=== PATIENT | male | born 1955 | race Caucasian/White ===

== ENCOUNTER → 2018-11-03 | Outpatient (CLI) | payer OTHER ==
--- NOTE | 2018-11-04 10:40 | RAD ---
Single frontal view pelvis Indication: M25.562, M25.561, 25.551, M25.552 Comparison: None. Impression: No acute fracture. Mild to moderate bilateral hip osteoarthritic with joint space narrowing and tiny osteophytes. Lower lumbar disc disease. Electronically signed by: Rakesh Cornelius MD 11/04/2018 10:37 AM CDT
--- NOTE | 2018-11-04 10:43 | RAD ---
4 radiographs right knee. 4 radiographs left knee. Indication: M25.562, M25.561, 25.551, M25.552 Comparison: None. Impression: Severe bilateral medial knee compartment osteoarthritis, left greater than right. There is severe joint space loss and patchy areas of cortical remodeling and subchondral sclerosis. Moderate narrowing bilateral lateral and patellofemoral compartments. Moderate to large tricompartmental osteophytes bilaterally. Small right knee effusion. Moderate left knee effusion with several ossified loose bodies in the left suprapatellar recess measuring up to 20 mm. No acute fracture of either knee. Electronically signed by: Rakesh Cornelius MD 11/04/2018 10:40 AM CDT
== END ==
LOC: RAD 09:34
PROVIDERS: ATTEND Orthopaedic Surgery
DX: M16.0 Bilateral primary osteoarthritis of hip (principal); M17.0 Bilateral primary osteoarthritis of knee; M51.36 Other intervertebral disc degeneration, lumbar region

== ENCOUNTER → 2018-11-29 | Outpatient (CLI) | payer OTHER | LOC: RESP 10:38 | PROVIDERS: ATTEND Orthopaedic Surgery | DX: Z01.818 Encounter for other preprocedural examination (principal) ==

== ENCOUNTER → 2018-12-28 | Outpatient (CLI) | payer OTHER ==
--- NOTE | 2018-12-28 16:29 | RAD ---
EXAM DESCRIPTION: Chest,2 Views CLINICAL HISTORY: PRE OP COMPARISON: None TECHNIQUE: PA/lateral FINDINGS: There is no acute appearing cardiac or pulmonary abnormality. Heart size is normal with normal pulmonary vascularity. No pleural effusion or pneumothorax. Lungs are clear with no consolidating infiltrate. Lateral view shows intact sternum and T-spine. IMPRESSION: No acute process is identified in the chest. Electronically signed by: Shahram Rhodes MD 12/28/2018 4:27 PM CDT
== END ==
LOC: LAB.O 10:10
PROVIDERS: ATTEND Orthopaedic Surgery
DX: Z01.818 Encounter for other preprocedural examination (principal)

== ENCOUNTER 2019-02-02 05:47 | Inpatient (IN) | payer OTHER ==
--- NOTE | 2019-01-22 12:56 | HP ---
CHIEF COMPLAINT: Left knee pain. HISTORY OF PRESENT ILLNESS: Mr. Kumar is a 63-year-old male with a history of severe knee pain. He has had bilateral knee pain that has caused him to utilize an assistive device. Because of his ongoing pain and failure of conservative measures, he has requested operative intervention. He says the pain is directly in the knee and has an intensity level at this time at 8 to 9 and sometimes 10 if he is on it quite a bit. PAST SURGICAL HISTORY: 1. Open meniscectomy. MEDICATIONS: 1. Lisinopril. 2. Triamterene. 3. Aspirin. ALLERGIES: NO KNOWN DRUG ALLERGIES. CODE STATUS: Full code. IMMUNIZATIONS: Up to date. SOCIAL HISTORY: The patient does not drink, smoke or use any illicit drugs. FAMILY HISTORY: None pertinent to today's complaint. REVIEW OF SYSTEMS: Negative except as indicated in the History of Present Illness. PHYSICAL EXAMINATION: VITAL SIGNS: Blood pressure 106/57. Pulse 87. Height 6'4". Weight 338 pounds. GENERAL: He is an obese male in no acute distress. MENTAL STATUS: The patient is awake, alert, and is able to give a good history and participate in the physical. The patient is oriented to person, place and time. SKIN: Normal tone and turgor. HEENT: Normocephalic, atraumatic. Pupils equal, round and reactive. Mucosal membranes are moist. NECK: Normal range of motion. No thyromegaly, no lymphadenopathy. CHEST: Normal respiratory excursion. CARDIAC: Regular rate and rhythm. No murmurs, rubs or gallops. MUSCULOSKELETAL: The upper extremities show full active range of motion without significant discomfort. He has no malalignment. Sensation is intact. Strength is 5/5. Both are warm and well perfused. The right lower extremity shows full range of motion of the knee. He has full extension in the knee and flexion to about 120 degrees. He has varus deformity. There is no varus/valgus or anterior/posterior laxity. There is no effusion present today. He has full range of motion in the ankle and digits. The left lower extremity shows full range of motion of the hip. There is varus deformity to the knee with crepitus throughout his range of motion from full extension and 120 degrees of flexion. The entire extremity is warm and well perfused. There is no significant varus/valgus or anterior/posterior laxity. He is very tender in both knees to palpation diffusely. The left knee has a moderate sized effusion today. The ankle and digits show full active range of motion. ASSESSMENT: 1. Severe arthritis. PLAN: The plan at this point is for total knee arthroplasty. We have discussed the risks, benefits, and alternatives to that and the patient has given informed consent. [facility][id number] [facility]
[2019-02-02] MEDS ORDERED: LACTATED RINGERS 1,000 ML ONE (05:57)
[2019-02-02] MEDS ORDERED: ceFAZolin SODIUM 1 GM VIAL ONE ×6 (05:57→19:51)
[2019-02-02] MEDS ORDERED: VANCOMYCIN HCL INJ 1,000 MG VIAL IVPB ONE ×4 (05:57→19:51)
[2019-02-02] MEDS ORDERED: TRANEXAMIC ACID 1,000 MG/10 ML VIAL ONE ×3 (05:57→09:09)
[2019-02-02] MEDS ORDERED: SODIUM CHL 0.9% 100ML MINI-BAG 100 ML IVPB ONE (05:57)
[2019-02-02] MEDS ORDERED: SODIUM CHLORIDE 0.9% 250ML 250 ML ONE ×2 (05:58→19:50)
[2019-02-02] MEDS ORDERED: SODIUM CHLORIDE 0.9% 100ML 100 ML IVPB ONE ×3 (05:58→19:51)
[2019-02-02] MEDS ORDERED: BUPIVACAINE 0.5% 30 ML VIAL INJ ONE (06:48)
[2019-02-02] MEDS ORDERED: BUPIVACAINE LIPOSOME 13.3 MG/ML VIAL INJ ONE (06:48)
[2019-02-02] MEDS ORDERED: SODIUM CHLORIDE 0.9% 50 ML VIAL ONE (07:00)
[2019-02-02] MEDS ORDERED: PROPOFOL 200 MG/20 ML VIAL IV ONE (07:00)
[2019-02-02] MEDS ORDERED: ePHEDrine SULF 50 MG/ML ONE (07:00)
[2019-02-02] MEDS ORDERED: raNITIdine HCL INJ 25 MG/ML VIAL ONE (07:00)
[2019-02-02] MEDS ORDERED: DEXAMETHASONE INJ 10 MG/ML VIAL ONE (07:00)
[2019-02-02] MEDS ORDERED: LACTATED RINGERS 1,000 ML BAG IV ONE (10:20)
[2019-02-02] MEDS ORDERED: TRANEXAMIC ACID 1,000 MG/10 ML VIAL IV ONE (10:21)
[2019-02-02] MEDS ORDERED: MORPHINE SULFATE *EPIDURAL* 0.5 MG/ML VIAL ONE (10:55)
[2019-02-02] MEDS ORDERED: MIDAZOLAM INJ 5 MG/5 ML VIAL ONE (10:55)
[2019-02-02] MEDS ORDERED: KETAMINE HCL 100 MG/ML VIAL ONE (10:55)
[2019-02-02] MEDS ORDERED: fentaNYL CITRATE INJ 50 MCG/ML AMP ONE (10:55)
[2019-02-02] MEDS ORDERED: ALUMINUM & MAGNESIUM HYDROXIDE 30 ML UD PO PRN (13:53)
[2019-02-02] MEDS ORDERED: ACETAMINOPHEN 325 MG TAB PO PRN (13:53)
[2019-02-02] MEDS ORDERED: ONDANSETRON INJ 4 MG/2 ML VIAL IV PRN (13:53)
[2019-02-02] MEDS ORDERED: MORPHINE SULFATE INJ 10 MG/ML VIAL IV PRN (13:53)
[2019-02-02] MEDS ORDERED: MAGNESIUM HYDROXIDE 30 ML UD PO PRN (13:53)
[2019-02-02] MEDS ORDERED: SODIUM CHLORIDE 0.9% (FLUSH) 10 ML SYG IV PRN (13:53)
[2019-02-02] MEDS ORDERED: TRANEXAMIC ACID INJ 1,000 MG in SODIUM CHLORIDE 0.9% 100ML 100 ML IVPB ONE (13:53)
[2019-02-02] MEDS ORDERED: ACETAMINOPHEN 500 MG TAB PO PRN (13:53)
[2019-02-02] MEDS ORDERED: PROMETHAZINE HCL INJ 12.5 MG in SODIUM CHLORIDE 0.9% 50ML 50 ML IVPB PRN (13:53)
[2019-02-02] MEDS ORDERED: HYDROcodone 5MG/APAP 325MG 1 EA TAB PO PRN (13:53)
[2019-02-02] MEDS ORDERED: BISACODYL SUPPOSITORY 10 MG PR PRN (13:53)
[2019-02-02] MEDS ORDERED: BENZOCAINE-MENTH LOZ (CEPACOL) 1 EA LOZ MT PRN (13:53)
[2019-02-02] MEDS ORDERED: traMADol HCL 50 MG TAB PO PRN (13:53)
[2019-02-02] MEDS ORDERED: PROMETHAZINE HCL INJ 25 MG in SODIUM CHLORIDE 0.9% 50ML 50 ML IVPB PRN (13:53)
[2019-02-02] MEDS ORDERED: TEMAZEPAM 15 MG CAP PO PRN (13:53)
[2019-02-02] MEDS ORDERED: NALOXONE HCL INJ 0.4 MG/ML VIAL IV PRN (13:53)
[2019-02-02] MEDS ORDERED: ZOLPIDEM TARTRATE 5 MG TAB PO PRN (13:53)
[2019-02-02] MEDS ORDERED: MORPHINE SULFATE INJ 10 MG/ML VIAL IM PRN (13:53)
[2019-02-02] MEDS ORDERED: MORPHINE PCA 1 MG/ML 100 ML BAG IVPB SCH (14:00)
[2019-02-02] MEDS ORDERED: IV SET AND CAP CHANGE INJ INJ SCH (14:00)
--- NOTE | 2019-02-02 14:18 | RAD ---
EXAM DESCRIPTION: Fluoroscopy Up to 1Hr CLINICAL HISTORY: 63 years Male, LEFT TKA COMPARISON: Left knee radiographs 11/03/2018. IMPRESSION: Single fluoroscopic images saved for the benefit of the surgeon demonstrates total left knee arthroplasty. Please see procedure report for full details. Fluoroscopy time: 5 seconds Fluoroscopic images: 1 Total dose: 2.5 mGy Electronically signed by: Cornelius Miranda MD 02/02/2019 2:15 PM CDT
[2019-02-02] MEDS ORDERED: ceFAZolin SODIUM 2 GM in SODIUM CHLORIDE 0.9% 100ML 100 ML IVPB SCH (16:00)
[2019-02-02] MEDS: DEX 5% W/NACL 0.45% 1000ML 1,000 ML IVS PRN ×2 (16:09→16:53)
--- NOTE | 2019-02-02 16:20 | RAD ---
XR KNEE 1-2 VIEWS HISTORY: 63 years Male TKA COMPARISON: November 03, 2018. TECHNIQUE: Frontal and lateral views of the left knee. IMPRESSION: Status post left knee arthroplasty. Imaged hardware appears intact and in normal alignment. No periprosthetic fracture detected. Postsurgical changes noted in the overlying soft tissues. Electronically signed by: Alessandro Schofield MD 02/02/2019 4:18 PM CDT
[2019-02-02] MEDS: CELECOXIB 100 MG CAP PO SCH (17:28)
--- NOTE | 2019-02-02 17:52 | OP ---
DATE OF PROCEDURE: 02/02/19 PREOPERATIVE DIAGNOSIS: 1. Osteoarthritis of the left knee. POSTOPERATIVE DIAGNOSIS: 1. Osteoarthritis of the left knee. PROCEDURE: 1. Total knee arthroplasty. SURGEON: Eitan Villa M.D. PLATFORM BEATER: Arya Morales CST, SA-C ANESTHESIA: General anesthesia. COMPLICATIONS: None. FINDINGS: Severe arthritis of the knee with multiple loose bodies. INDICATION FOR PROCEDURE: Mr. Kumar has a history of severe worsening knee pain. Mr. Kumar has been essentially debilitated by this and has failed conservative measures. Because of his failure of conservative measures he has requested operative intervention. After discussing the risks, benefits, and alternatives to that he has given informed consent for that. PROCEDURE: The patient was brought to the Operating Room and placed in supine position. General anesthesia was induced and the patient's leg was sterilely prepped and draped. Following prepping and draping, the distal femur was exposed and using an intramedullary guide, the distal femoral cut was made. The appropriate sized cutting block was measured, pinned into place, and the anterior, posterior, and chamfer cuts were made. The ACL was transected and the tibia was subluxed. Both the medial and lateral menisci were removed. An intramedullary guide was used to make the proximal tibial cut. The appropriate sized base plate was placed and a trial polyethylene was placed. The trial femur was placed, the knee was reduced, and the knee was taken through a range of motion. The knee was stable in anterior, posterior, varus and valgus stress. The patella tracked anatomically without evidence of subluxation or dislocation. After trialing, the trial components were removed and the bony surfaces were thoroughly irrigated with saline. Following irrigation, the surfaces were dried and the final components were cemented into place. The excess cement was removed and the remaining cement was allowed to cure. The knee was again taken through a range of motion to confirm stability. The wound was then irrigated with saline and closure was performed using PDS to approximate the arthrotomy followed by closure of the subcutaneous tissues with a combination of running and interrupted Monocryl sutures. Sterile dressing was placed. The patient was awoken from anesthesia and taken to Recovery. COMPONENTS: Sherin Triathlon knee, size 6 femur, size 6 tibia, 9 mm insert. POSTOPERATIVE INSTRUCTIONS: He will be weightbearing as tolerated on postoperative day 1. #[id number] [facility]
[2019-02-02] MEDS ORDERED: VANCOMYCIN HCL INJ 1,000 MG in SODIUM CHLORIDE 0.9% 250ML 250 ML IVPB SCH (18:00)
[2019-02-02] MEDS ORDERED: ENOXAPARIN SODIUM 30 MG/0.3 ML SYG SUBCU ONE (19:50)
[2019-02-02] MEDS: ceFAZolin SODIUM 2 GM in SODIUM CHLORIDE 0.9% 100ML 100 ML IVPB SCH (20:42)
[2019-02-02] MEDS: DOCUSATE CALCIUM 240 MG CAP PO SCH (20:42)
--- NOTE | 2019-02-02 21:20 | CONS ---
DATE OF CONSULTATION: 02/02/19 SUPERVISING PHYSICIAN: Aiden Disla M.D. CHIEF COMPLAINT: Left knee pain. HISTORY OF PRESENT ILLNESS: This is a 63 year-old male patient who has a history of severe left knee pain. He has had to use assistive devices. He has actually had an operative intervention in the past on this knee from meniscectomy. He requested Dr. Eitan Villa, orthopedic surgeon, for operative intervention for a left total knee. He was admitted today for operative intervention. He had no complications intraoperatively. I am seeing the patient postoperatively on the Medical/Surgical floor. PAST MEDICAL HISTORY: 1. Hypertension. 2. Diverticulosis. 3. Hepatitis C. He did treatment to cure several years ago. PAST SURGICAL HISTORY: 1. Open meniscectomy. OUTPATIENT MEDICATIONS: 1. Lisinopril. 2. Triamterene. 3. Aspirin. ALLERGIES: NO KNOWN DRUG ALLERGIES. SOCIAL HISTORY: He lives in [place]. He is . He smoked cigarettes for 33 years but he quit approximately 15 years ago. He quit drinking alcoholic beverages about 16 years ago in the past. He has had a history of smoking marijuana but he quit that many years ago. REVIEW OF SYSTEMS: Negative except as per History of Present Illness. PHYSICAL EXAMINATION: VITAL SIGNS: Temperature 98.1, heart rate 79, blood pressure 145/88, respiratory rate 16, O2 sat 97% on 2 liters nasal cannula. GENERAL: This is an obese male patient sitting up in his hospital bed. He is in no acute distress. HEENT: Normocephalic and atraumatic. Pupils are equal and reactive. Oropharynx is clear. NECK: Supple without mass. RESPIRATORY: Essentially clear to auscultation bilaterally. HEART: Regular rate and rhythm. GASTROINTESTINAL: Abdomen is soft, nondistended, non-tender. Bowel sounds are positive. EXTREMITIES: He has an Iceman in place to his left knee. It is in the CPM machine. Bilateral pedal pulses are palpable at +2. NEUROLOGIC: He is awake, alert and oriented times three. LABORATORY: WBCs are 6.7, hemoglobin 13.1, hematocrit 39.2. Electrolytes are basically within normal limits. BUN 33, creatinine 1.64, glucose 109. Urinalysis is unremarkable. Urine drug screen was negative. All other labs and films have been reviewed via the EMR. IMPRESSION: 1. Severe osteoarthritis status post left total knee arthroplasty performed by Dr. Eitan Villa, orthopedic surgeon. Postoperative day #0. 2. Hypertension. 3. History of hepatitis that was treated to cure. 4. History of diverticulosis. 5. Renal insufficiency. PLAN: We will continue present supportive care. Orthopedic issues will be per Dr. Eitan Villa, orthopedic surgeon. He will begin his physical therapy for strengthening and conditioning tomorrow. Restart his home medications. He may need additional lab in the next day or 2 to check his kidney function. I have also ordered a Keto type diet as he has been on that for several months and would like to continue with that. I have also consulted Business Technology Professor as he needs some kind of documentation about the surgery to be taken to the [facility] Will continue to monitor closely and follow as needed. #[id number] [facility]
[2019-02-02] MEDS: VANCOMYCIN HCL INJ 1,000 MG in SODIUM CHLORIDE 0.9% 250ML 250 ML IVPB SCH (21:57)
[2019-02-02] MEDS: ENOXAPARIN SODIUM 30 MG/0.3 ML SYG SUBCU SCH (23:07)
[2019-02-03] MEDS: ceFAZolin SODIUM 2 GM in SODIUM CHLORIDE 0.9% 100ML 100 ML IVPB SCH ×3 (04:30→20:46)
[2019-02-03] MEDS: CELECOXIB 100 MG CAP PO SCH ×2 (07:51→17:38)
[2019-02-03] MEDS ORDERED: SODIUM CHLORIDE 0.9% 250ML 250 ML ONE ×2 (08:22→20:03)
[2019-02-03] MEDS ORDERED: VANCOMYCIN HCL INJ 1,000 MG VIAL IVPB ONE ×2 (08:23→20:04)
[2019-02-03] MEDS: HCTZ 25 MG/TRIAMTERENE 37.5 MG 1 EA CAP PO SCH (09:29)
[2019-02-03] MEDS: LISINOPRIL 10 MG TAB PO SCH (09:29)
[2019-02-03] MEDS: POLYETHYLENE GLYCOL 3350 17 GM PCKT PO SCH (09:29)
[2019-02-03] MEDS: MAGNESIUM OXIDE 400 MG TAB PO SCH (09:29)
[2019-02-03] MEDS: VANCOMYCIN HCL INJ 1,000 MG in SODIUM CHLORIDE 0.9% 250ML 250 ML IVPB SCH ×2 (10:17→22:02)
[2019-02-03] MEDS: ENOXAPARIN SODIUM 30 MG/0.3 ML SYG SUBCU SCH ×2 (10:20→22:31)
[2019-02-03] MEDS ORDERED: ceFAZolin SODIUM 1 GM VIAL ONE ×3 (12:39→20:05)
[2019-02-03] MEDS ORDERED: SODIUM CHLORIDE 0.9% 100ML 100 ML IVPB ONE ×3 (12:39→20:05)
--- NOTE | 2019-02-03 15:44 | PN ---
DATE: 02/03/19 SUBJECTIVE: Mr. Kumar is subjectively doing really well and he says his pain, even postoperatively, is better than what it was preoperatively. OBJECTIVE: He is afebrile. Vital signs are stable. Dressing is clean, dry and intact. ASSESSMENT: 1. Status post total knee arthroplasty PLAN: The plan at this point is for him to continue on with weightbearing as tolerated. Will get him discharged when he meets discharge criteria. #[id number] [facility]
[2019-02-03] MEDS: CYCLOBENZAPRINE HCL 10 MG TAB PO PRN (19:41)
[2019-02-03] MEDS: DEX 5% W/NACL 0.45% 1000ML 1,000 ML IVS PRN (19:41)
[2019-02-03] MEDS: HYDROcodone 10MG/APAP 325MG 1 EA TAB PO PRN (19:41)
[2019-02-03] MEDS: DOCUSATE CALCIUM 240 MG CAP PO SCH (20:46)
[2019-02-03] MEDS ORDERED: ceFAZolin SODIUM 2 GRAMS PREMI 2 GM in PREMIX BAG 1 BAG IVPB SCH (21:00)
--- NOTE | 2019-02-03 21:44 | PN ---
DATE: 02/03/19 SUPERVISING PHYSICIAN: Aiden Disla M.D. SUBJECTIVE: The patient is sitting up in his chair eating. He has no complaints. He actually feels like his physical therapy is going very well, and because of his previous knee pain he feels like it is very minimal pain, mostly soreness. Denies shortness of breath, nausea, vomiting, diarrhea, constipation or chest pain. OBJECTIVE: VITAL SIGNS: Temperature 98, heart rate 72, blood pressure 121/73, respiratory rate 16, O2 sat 98% on room air. RESPIRATORY: Essentially clear to auscultation bilaterally. CARDIAC: Regular rate and rhythm. GASTROINTESTINAL: Abdomen is soft, nondistended, non-tender. Bowel sounds are positive. EXTREMITIES: Bilateral pedal pulses are palpable at +2. His left knee has a dressing on it that is dry and intact. NEUROLOGIC: He is awake, alert and oriented times three. LABORATORY: Hemoglobin 12.4, hematocrit 38. All other labs and films have been reviewed via the EMR. ASSESSMENT: 1. Severe osteoarthritis status post left total knee arthroplasty performed by Dr. Eitan Villa, orthopedic surgeon. Postoperative day #1. 2. Hypertension. 3. History of hepatitis that was treated to cure. 4. History of diverticulosis. 5. Renal insufficiency. PLAN: We will continue present supportive care. Orthopedic issues will be per Dr. Eitan Villa, orthopedic surgeon. He will continue with his physical therapy for strengthening and conditioning. I have also consulted Animal Care Service Worker yesterday as he needs some documentation for his surgery that needs to be taken to the [facility]. Otherwise we will continue to monitor closely and follow as needed. #[id number] [facility]
[2019-02-04] MEDS: ceFAZolin SODIUM 2 GM in SODIUM CHLORIDE 0.9% 100ML 100 ML IVPB SCH ×3 (05:22→21:03)
[2019-02-04] MEDS: HYDROcodone 10MG/APAP 325MG 1 EA TAB PO PRN ×3 (05:58→14:59)
[2019-02-04] MEDS: CELECOXIB 100 MG CAP PO SCH ×2 (07:21→16:50)
[2019-02-04] MEDS: HCTZ 25 MG/TRIAMTERENE 37.5 MG 1 EA CAP PO SCH (09:11)
[2019-02-04] MEDS: POLYETHYLENE GLYCOL 3350 17 GM PCKT PO SCH (09:11)
[2019-02-04] MEDS: MAGNESIUM OXIDE 400 MG TAB PO SCH (09:11)
[2019-02-04] MEDS: SODIUM CHLORIDE 0.9% (FLUSH) 10 ML SYG IV SCH ×2 (09:11→21:03)
[2019-02-04] MEDS: LISINOPRIL 10 MG TAB PO SCH (09:11)
[2019-02-04] MEDS ORDERED: SODIUM CHLORIDE 0.9% 250ML 250 ML ONE ×2 (10:35→19:41)
[2019-02-04] MEDS ORDERED: VANCOMYCIN HCL INJ 1,000 MG VIAL IVPB ONE ×2 (10:36→19:41)
[2019-02-04] MEDS: VANCOMYCIN HCL INJ 1,000 MG in SODIUM CHLORIDE 0.9% 250ML 250 ML IVPB SCH ×2 (11:06→21:40)
[2019-02-04] MEDS: ENOXAPARIN SODIUM 30 MG/0.3 ML SYG SUBCU SCH ×2 (11:09→22:51)
--- NOTE | 2019-02-04 11:56 | PN ---
DATE: 02/04/19 SUBJECTIVE: Mr. Kumar seems to be doing well and is up to a chair. OBJECTIVE: He is afebrile. Vital signs are stable. Wound is clean. There are no signs or symptoms of infection. ASSESSMENT: 1. Status post total knee arthroplasty. PLAN: The plan at this point is for him to continue on with his weightbearing as tolerated. #[id number] [facility]
[2019-02-04] MEDS ORDERED: ceFAZolin SODIUM 1 GM VIAL ONE ×3 (13:27→19:37)
[2019-02-04] MEDS ORDERED: SODIUM CHLORIDE 0.9% 100ML 100 ML IVPB ONE ×3 (13:27→19:37)
[2019-02-04] MEDS: CYCLOBENZAPRINE HCL 10 MG TAB PO PRN (14:59)
[2019-02-04] MEDS: DOCUSATE CALCIUM 240 MG CAP PO SCH (21:03)
--- NOTE | 2019-02-04 22:50 | PN ---
DATE: 02/04/19 SUPERVISING PHYSICIAN: Aiden Disla M.D. SUBJECTIVE: The patient is sitting up in his chair. He is eating his meal. He has no complaints of shortness of breath, chest pain, nausea or vomiting. He feels like his physical therapy is going well and is looking forward to having his other knee done by Dr. Villa. OBJECTIVE: VITAL SIGNS: Temperature 98.4, heart rate 78, blood pressure 125/84, respiratory rate 18, O2 sat 95% on room air. RESPIRATORY: Essentially clear to auscultation bilaterally. CARDIAC: Regular rate and rhythm. GASTROINTESTINAL: Abdomen is soft, nondistended, non-tender. Bowel sounds are positive. EXTREMITIES: Bilateral pedal pulses are palpable at +2. His left knee has an island dressing on and it is dry and intact. NEUROLOGIC: He is awake, alert and oriented times three. LABORATORY: There are no labs or films to report at this time. ASSESSMENT: 1. Severe osteoarthritis status post left total knee arthroplasty performed by Dr. Eitan Villa, orthopedic surgeon. Postoperative day #2. 2. Hypertension. 3. History of hepatitis that was treated to cure. 4. History of diverticulosis. 5. Renal insufficiency. PLAN: We will continue present supportive care. His orthopedic issues will be per Dr. Eitan Villa, orthopedic surgeon. He will continue his physical therapy for strengthening and conditioning. Hopefully can be discharged tomorrow or the next day with discharge physical therapy at the [facility]. Otherwise we will continue to monitor closely and follow as needed. #[id number] [facility]
[2019-02-05] MEDS: CYCLOBENZAPRINE HCL 10 MG TAB PO PRN (00:20)
[2019-02-05] MEDS: HYDROcodone 10MG/APAP 325MG 1 EA TAB PO PRN ×3 (00:20→15:40)
[2019-02-05] MEDS: ceFAZolin SODIUM 2 GM in SODIUM CHLORIDE 0.9% 100ML 100 ML IVPB SCH ×2 (04:39→14:25)
[2019-02-05] MEDS: CELECOXIB 100 MG CAP PO SCH (07:48)
[2019-02-05] MEDS: SODIUM CHLORIDE 0.9% (FLUSH) 10 ML SYG IV SCH (08:01)
[2019-02-05] MEDS: POLYETHYLENE GLYCOL 3350 17 GM PCKT PO SCH (08:01)
[2019-02-05] MEDS: MAGNESIUM OXIDE 400 MG TAB PO SCH (08:01)
[2019-02-05] MEDS: LISINOPRIL 10 MG TAB PO SCH (08:02)
[2019-02-05] MEDS ORDERED: RIVAROXABAN 15 MG TAB ONE (09:21)
[2019-02-05] MEDS: HCTZ 25 MG/TRIAMTERENE 37.5 MG 1 EA CAP PO SCH (09:27)
[2019-02-05] MEDS ORDERED: RIVAROXABAN 15 MG TAB PO SCH (09:30)
[2019-02-05] MEDS ORDERED: VANCOMYCIN HCL INJ 1,000 MG VIAL IVPB ONE (10:51)
[2019-02-05] MEDS ORDERED: SODIUM CHLORIDE 0.9% 250ML 250 ML ONE (10:52)
[2019-02-05] MEDS: VANCOMYCIN HCL INJ 1,000 MG in SODIUM CHLORIDE 0.9% 250ML 250 ML IVPB SCH (10:55)
[2019-02-05 14:37] VITALS: BP 121/69; TEMP 98.1; O2SAT 95
[2019-02-05] MEDS ORDERED: MAGNESIUM HYDROXIDE 30 ML UD PO ONE (21:00)
[2019-02-05] MEDS ORDERED: BISACODYL SUPPOSITORY 10 MG PR ONE (21:00)
--- NOTE | 2019-02-05 22:03 | DS ---
SUPERVISING PHYSICIAN: Baltazar Ennis M.D. ADMISSION DIAGNOSIS: 1. Left knee osteoarthritis. 2. Hypertension. 3. History of hepatitis that was treated and resolved. 4. History of diverticulosis. 5. Renal insufficiency. DISCHARGE DIAGNOSIS: 1. Left knee osteoarthritis. 2. Hypertension. 3. History of hepatitis that was treated and resolved. 4. History of diverticulosis. 5. Renal insufficiency. HOSPITAL COURSE: This is a 63 year-old male patient who underwent left total knee arthroplasty due to severe left knee osteoarthritis that failed conservative measures. There were no intraoperative complications and over the weekend he actually progressed pretty well to the point where Physical Therapy cleared him for discharge with outpatient physical therapy. He will actually have physical therapy in [place]. His pain is controlled and he has not shown any decompensation since he has been here. Therefore the patient will be discharged today in stable condition. He has been given samples of Xarelto to finish his 12 days of anticoagulation postoperatively. His diet will not change. Activity as per Physical Therapy. He can followup with Dr. Villa as an outpatient. #[id number] [facility]
[2019-02-06] MEDS ORDERED: RIVAROXABAN 15 MG TAB PO SCH (07:30)
== END 2019-02-05 16:28 | disposition home or self-care (01) | DRG 470 ==
LOC: AMB 05:47 → MS 14:40
PROVIDERS: ADMIT Orthopaedic Surgery; ATTEND Family Medicine
PROC: 0SRD0J9 Replacement of Left Knee Joint with Synthetic Substitute, Cemented, Open Approach (ICD-10-PCS; principal; 2019-02-02 11:04)
DX: M17.12 Unilateral primary osteoarthritis, left knee (principal); M23.42 Loose body in knee, left knee; I10 Essential (primary) hypertension; N28.9 Disorder of kidney and ureter, unspecified; E66.9 Obesity, unspecified; Z86.19 Personal history of other infectious and parasitic diseases; Z79.82 Long term (current) use of aspirin; Z87.891 Personal history of nicotine dependence; Z68.27 Body mass index [BMI] 27.0-27.9, adult

== ENCOUNTER → 2019-04-17 | Outpatient (CLI) | payer OTHER | LOC: LAB.O 11:02 | PROVIDERS: ATTEND Orthopaedic Surgery | DX: Z01.818 Encounter for other preprocedural examination (principal) ==

== ENCOUNTER → 2019-05-01 | Outpatient (CLI) | payer OTHER ==
--- NOTE | 2019-05-01 17:11 | CT ---
Procedure: CT LUNG SCREENING Exam Date: 10/30/2018. Ordering Provider: Rai Finch Clinical Indication: HX OF TOBACCO USE smoking cessation x15 years. 32 pack years. This patient meets eligibility criteria for low-dose CT lung cancer screening. Comparison: Chest x-ray December 2018. Technique: Using a multislice scanner, sequential helical axial imaging was obtained in the thorax, 2.5 mm thickness, 2.5 mm separation, from the level of the thoracic inlet through the lung bases without IV contrast. A low dose protocol was utilized for BMI greater than 30: BMI: 38.9. CTDI: 2.93 mGy. 120. kVp. 75 mA. DLP 103.3 mGy-centimeters. 2D sagittal and coronal reconstructed images, 6.0 mm thickness, were obtained. This exam was performed according to our departmental dose optimization program which includes use of automated exposure control, adjustment of the mA and/or kV according to patient size and/or use of iterative reconstruction technique. Nodule measurements under 10 mm are given as mean value of 3 axes diameters. FINDINGS: Lungs and large airways: Bilateral pleural parenchymal scars in the lingula right middle lobe and bilateral lower lobes. Bilateral calcified nodules in the superior segments of the lower lobes subpleural. No abnormal nodules or masses. No focal infiltrates. Pleura and space: Bilateral foci of thickening no effusion calcification or pneumothorax. Mediastinum and shelby: evaluation limited by low dose technique and lack of IV contrast. Small nodes with no dominant soft tissue masses. Heart and great vessels: Coronary artery calcifications, atherosclerotic calcifications in the arch of aorta. Chest wall, lower neck, axillae: Evaluation also limited by same factors as described above. Negative. Upper abdomen: Evaluation limited by low-dose technique. No free fluid or free air. Included spleen and adrenal glands normal size and density. Multiple rim calcified gallstones in the included gallbladder. Osseous structures: Evaluation limited by low dose MIP technique. Bilateral arthrosis in the sternoclavicular joints. Multiple levels of spondylosis with some ankylosis in the thoracic spine. IMPRESSION: No abnormal nodules or masses. No focal infiltrates. [facility] Best Practice recommendations:. Please see below for Lung RADS category and FOLLOW-UP.* *Lung RADS category Category 1S - No nodule or definitely benign nodules (probability of malignancy less than 1%). Follow-up: Continue annual screening with Low Dose Chest CT in 12 months. 2. Cholelithiasis of the gallbladder. Correlate with clinical findings. Consider follow-up gallbladder ultrasound. Electronically signed by: Arya Ahmadi MD 05/01/2019 5:09 PM CDT
== END ==
LOC: LAB.O 09:44
PROVIDERS: ATTEND Family Medicine
DX: Z01.818 Encounter for other preprocedural examination (principal); Z87.891 Personal history of nicotine dependence
CPT/HCPCS: 36415; 80048; 81001; 85025; G0297

== ENCOUNTER 2019-05-15 05:21 | Inpatient (IN) | payer OTHER ==
--- NOTE | 2019-05-12 12:16 | HP ---
CHIEF COMPLAINT: Right knee pain. HISTORY OF PRESENT ILLNESS: Mr. Kumar is a 63 year-old male with a history of severe pain that is dull and aching in nature but also occasionally sharp. He has noticed severe limitation in his range of motion. He has had conservative measures, however, he has had ongoing pain that is at least a 5 and it can worsen to a 10. He has no alleviating factors. Aggravating factors include range of motion. They also include weightbearing. Associated symptoms are grinding and popping. He has had no previous surgery on that, however, x-rays show end-stage osteoarthritis. He has had injections but those failed to give ongoing relief. He has been to preoperative physical therapy and has had contralateral knee replacement. Because of his failure of conservative measures, he has requested operative intervention. After discussing the risks, benefits and alternatives to that, he has given informed consent. PAST SURGICAL HISTORY: 1. Total knee arthroplasty. CURRENT MEDICATIONS: 1. Lisinopril. 2. Aspirin. 3. Multiple vitamins. CODE STATUS: Full code. FAMILY HISTORY: None pertinent to today's complaint. SOCIAL HISTORY: The patient does not drink, smoke or use any illicit drugs. ALLERGIES: NO KNOWN DRUG ALLERGIES. PAIN CONTRACT: None. REVIEW OF SYSTEMS: Negative except as indicated in the History of Present Illness. HEENT: The patient reports no symptoms. RESPIRATORY: The patient reports no symptoms. CARDIOVASCULAR: The patient reports no symptoms. GASTROINTESTINAL: The patient reports no symptoms GENITOURINARY: The patient reports no symptoms. MUSCULOSKELETAL: Negative except as noted in History of Present Illness. SKIN: The patient reports no symptoms. NEUROLOGIC: The patient reports no symptoms. PHYSICAL EXAMINATION: VITAL SIGNS: Blood pressure 145/78, pulse 69, height 6' 4", weight 325 pounds. MENTAL STATUS: The patient is awake, alert, and is able to give a good history and participate in the physical. The patient is oriented to person, place and time. SKIN: Normal tone and turgor. HEENT: Normocephalic, atraumatic. Pupils equal, round and reactive. Mucosal membranes are moist. NECK: Normal range of motion. No thyromegaly, no lymphadenopathy. CHEST: Normal respiratory excursion. CARDIAC: Regular rate and rhythm. No murmurs, rubs or gallops. MUSCULOSKELETAL: The bilateral upper extremities show full active painless range of motion. He has intact sensation throughout the extremities and they are warm and well-perfused. He has no malalignment, negative Neer's, negative Castanon and 2+ reflexes bilaterally. The left lower extremity shows no pain with range of motion of the hip, knee, ankle or digits. Sensation is intact. There is no varus-valgus or anterior or posterior laxity. He has a well-healed wound on the anterior aspect of the knee. He has 5/5 strength throughout the extremity. Skin is intact throughout. The right lower extremity shows full range of motion of the hip, ankle and digits. Range of motion of the knee likes about 5 degrees and is only to about 95 degrees of flexion today. He has no varus-valgus or anterior or posterior laxity. He does have moderate sized effusion today. He is very tender diffusely about the knee. He has crepitus throughout his range of motion. X-RAYS: Per my interpretation, the x-ray showed severe osteoarthritis. ASSESSMENT: Osteoarthritis. PLAN: The plan at this point is total knee arthroplasty. Mr. Kumar and I have discussed the risks, benefits, and alternatives to that and the patient has given informed consent. [facility][id number] [facility]
[2019-05-15] MEDS ORDERED: VANCOMYCIN HCL INJ 1,000 MG VIAL IVPB ONE ×3 (05:54→19:15)
[2019-05-15] MEDS ORDERED: SODIUM CHL 0.9% 100ML MINI-BAG 100 ML IVPB ONE (05:54)
[2019-05-15] MEDS ORDERED: LACTATED RINGERS 1,000 ML ONE (05:54)
[2019-05-15] MEDS ORDERED: TRANEXAMIC ACID 1,000 MG/10 ML VIAL ONE ×2 (05:54→05:55)
[2019-05-15] MEDS ORDERED: ceFAZolin SODIUM 1 GM VIAL ONE ×2 (05:54→06:32)
[2019-05-15] MEDS ORDERED: SODIUM CHLORIDE 0.9% 100ML 100 ML IVPB ONE (05:55)
[2019-05-15] MEDS ORDERED: SODIUM CHLORIDE 0.9% 250ML 250 ML ONE ×3 (05:55→19:15)
[2019-05-15] MEDS ORDERED: KETAMINE HCL 100 MG/ML VIAL ONE (06:27)
[2019-05-15] MEDS ORDERED: ACETAMINOPHEN IV 1000MG 100 ML ONE (06:27)
[2019-05-15] MEDS ORDERED: MIDAZOLAM INJ 5 MG/5 ML VIAL ONE (06:28)
[2019-05-15] MEDS ORDERED: MORPHINE SULFATE *EPIDURAL* 0.5 MG/ML VIAL ONE (06:28)
[2019-05-15] MEDS ORDERED: fentaNYL CITRATE INJ 50 MCG/ML AMP ONE (06:28)
[2019-05-15] MEDS: LACTATED RINGERS 1,000 ML IVS ONE ×2 (06:37→09:41)
[2019-05-15] MEDS: BUPIVACAINE LIPOSOME 13.3 MG/ML VIAL INJ ONE ×2 (07:45→08:26)
[2019-05-15] MEDS: BUPIVACAINE 0.5% 30 ML VIAL INJ ONE ×2 (07:45→08:26)
[2019-05-15] MEDS: ceFAZolin SODIUM 1 GM VIAL ONE ×2 (07:46→08:48)
[2019-05-15] MEDS: VANCOMYCIN HCL INJ 1,000 MG VIAL IVPB ONE ×2 (07:46→08:48)
[2019-05-15] MEDS ORDERED: MORPHINE SULFATE INJ 10 MG/ML VIAL IM PRN (09:09)
[2019-05-15] MEDS ORDERED: NALOXONE HCL INJ 0.4 MG/ML VIAL IV PRN (09:09)
[2019-05-15] MEDS ORDERED: ONDANSETRON INJ 4 MG/2 ML VIAL IV PRN (09:09)
[2019-05-15] MEDS ORDERED: CYCLOBENZAPRINE HCL 10 MG TAB PO PRN (09:09)
[2019-05-15] MEDS ORDERED: MAGNESIUM HYDROXIDE 30 ML UD PO PRN (09:09)
[2019-05-15] MEDS ORDERED: HYDROcodone 5MG/APAP 325MG 1 EA TAB PO PRN (09:09)
[2019-05-15] MEDS ORDERED: TRANEXAMIC ACID INJ 1,000 MG in SODIUM CHLORIDE 0.9% 100ML 100 ML IVPB ONE (09:09)
[2019-05-15] MEDS ORDERED: ACETAMINOPHEN 325 MG TAB PO PRN (09:09)
[2019-05-15] MEDS ORDERED: BISACODYL SUPPOSITORY 10 MG PR PRN (09:09)
[2019-05-15] MEDS ORDERED: PROMETHAZINE HCL INJ 25 MG in SODIUM CHLORIDE 0.9% 50ML 50 ML IVPB PRN (09:09)
[2019-05-15] MEDS ORDERED: SODIUM CHLORIDE 0.9% (FLUSH) 10 ML SYG IV PRN (09:09)
[2019-05-15] MEDS ORDERED: ACETAMINOPHEN 500 MG TAB PO PRN (09:09)
[2019-05-15] MEDS ORDERED: traMADol HCL 50 MG TAB PO PRN (09:09)
[2019-05-15] MEDS ORDERED: TEMAZEPAM 15 MG CAP PO PRN (09:09)
[2019-05-15] MEDS ORDERED: PROMETHAZINE HCL INJ 12.5 MG in SODIUM CHLORIDE 0.9% 50ML 50 ML IVPB PRN (09:09)
[2019-05-15] MEDS ORDERED: MORPHINE SULFATE INJ 10 MG/ML VIAL IV PRN (09:09)
[2019-05-15] MEDS ORDERED: ALUMINUM & MAGNESIUM HYDROXIDE 30 ML UD PO PRN (09:09)
[2019-05-15] MEDS ORDERED: ZOLPIDEM TARTRATE 5 MG TAB PO PRN (09:09)
[2019-05-15] MEDS ORDERED: BENZOCAINE-MENTH LOZ (CEPACOL) 1 EA LOZ MT PRN (09:09)
[2019-05-15] MEDS ORDERED: MORPHINE PCA 1 MG/ML 100 ML BAG IVPB SCH (09:30)
[2019-05-15] MEDS ORDERED: IV SET AND CAP CHANGE INJ INJ SCH (09:30)
[2019-05-15] MEDS ORDERED: MORPHINE PCA 1 MG/ML 100 ML BAG IVPB ONE (09:50)
[2019-05-15] MEDS ORDERED: DEXAMETHASONE INJ 10 MG/ML VIAL IV ONE (10:00)
[2019-05-15] MEDS ORDERED: PROPOFOL 200 MG/20 ML VIAL IV ONE (10:00)
[2019-05-15] MEDS ORDERED: PHENYLEPHRINE INJ 1ML 10 MG/ML VIAL IV ONE (10:00)
[2019-05-15] MEDS ORDERED: SODIUM CHLORIDE 0.9% 50 ML VIAL INJ ONE (10:00)
[2019-05-15] MEDS ORDERED: raNITIdine HCL INJ 25 MG/ML VIAL IV ONE (10:00)
[2019-05-15] MEDS ORDERED: MAGNESIUM SULFATE INJ 1 GM/2 ML VIAL IVPB ONE (10:00)
--- NOTE | 2019-05-15 11:49 | RAD ---
EXAM DESCRIPTION: Fluoroscopy Up to 1Hr CLINICAL HISTORY: RIGHT TKA COMPARISON: None. TECHNIQUE: Fluoroscopy time is 2.4 seconds, dose is 0.28 mGy, one spot film. FINDINGS: The exam demonstrates evidence of right total knee arthroplasty. Positioning is near-anatomic in this single view. IMPRESSION: Right total knee arthroplasty. Electronically signed by: Oneil Martines MD 05/15/2019 11:47 AM CDT
[2019-05-15] MEDS: DEX 5% W/NACL 0.45% 1000ML 1,000 ML IVS PRN (12:38)
--- NOTE | 2019-05-15 13:55 | CONS ---
SUPERVISING PHYSICIAN: Baltazar Ennis MD REASON FOR CONSULTATION: Medical management. HISTORY OF PRESENT ILLNESS: Mr. Kumar is a 63-year-old male patient who came in for an elective right total knee arthroplasty. He has had ongoing knee pain which has failed conservative measures over quite some time. Therefore, he underwent the surgical procedure today with no intraoperative complications. He did receive a spinal block which has assisted with pain management. At the time of examination, the patient is alert and oriented with no complaints of pain at this time. PAST MEDICAL HISTORY: 1. Hypertension. 2. Diverticulosis. 3. Hepatitis C for which he received treatment to cure several years ago. 4. Two weeks postoperative from the last knee surgery on the left knee, he had a ruptured appendix that required a two week hospitalization and got a regional and IV antibiotics post hospitalization. PAST SURGICAL HISTORY: 1. Open meniscectomy. 2. Left total knee arthroplasty. MEDICATIONS: 1. Aspirin 81 mg p.o. daily. 2. Lisinopril 20 mg p.o. daily. 3. Multivitamin 1 tablet p.o. daily. 4. Triamterene/HCTZ 1 tab p.o. daily. ALLERGIES: NO KNOWN DRUG ALLERGIES. FAMILY HISTORY: Reviewed and noncontributory to the current diagnosis. SOCIAL HISTORY: He quit smoking 15 yeas ago. He quit drinking about 16 years ago as well. No illicit drugs recently. REVIEW OF SYSTEMS: 12-point review of systems is negative except for the right knee pain that he experienced preoperatively. PHYSICAL EXAMINATION: VITAL SIGNS: Blood pressure 136/74. Heart rate 69. Respiratory rate 16. Temperature 97.7. Oxygen saturation 94%. GENERAL: Mr. Kumar is a 63-year-old male patient in no active distress currently. NEUROLOGIC: The patient is alert and oriented. LUNGS: Clear to auscultation bilaterally. CARDIOVASCULAR: Regular rate and rhythm. Normal S1, S2. ABDOMEN: Soft. Positive bowel sounds. EXTREMITIES: Left lower extremity with 2+ pulses. No edema. Right lower extremity is wrapped in an Zack bandage with ice pack in place. Peripheral pulses are 2+. Capillary refill less than 2 seconds. He has full sensation. ASSESSMENT: 1. Right knee osteoarthritis status post right total knee arthroplasty, postoperative day 0. 2. Hypertension. 3. History of hepatitis C with previous curative treatment. 4. History of diverticulosis. 5. History of renal insufficiency which is not evident on his preoperative labs. PLAN: The patient will be admitted to the Floor to participate in postoperative physical therapy as well as goal for pain management. Anticoagulation will start approximately 12 hours after surgery with Lovenox 30 mg twice a day. I will resume his home medications as well. We will monitor for any medical issues that may occur during this admission. #[id number] [facility]
--- NOTE | 2019-05-15 14:00 | RAD ---
EXAM DESCRIPTION: Knee,Right 1 or 2 Views CLINICAL HISTORY: 63 years Male, TKA COMPARISON: None. Findings: Location: Right knee Recent right total knee arthroplasty. No evidence of hardware complication. No acute fracture or dislocation. Expected postsurgical appearance of the overlying soft tissues. IMPRESSION: Recent right total knee arthroplasty. No evidence of hardware complication. Electronically signed by: Benson Roche MD 05/15/2019 1:59 PM CDT
[2019-05-15] MEDS ORDERED: ceFAZolin SODIUM 2 GRAMS PREMI 50 ML IVPB ONE ×2 (15:44→19:15)
[2019-05-15] MEDS: ceFAZolin SODIUM 2 GRAMS PREMI 2 GM in PREMIX BAG 1 BAG IVPB SCH ×2 (15:46→23:40)
[2019-05-15] MEDS: CELECOXIB 100 MG CAP PO SCH (16:36)
[2019-05-15] MEDS: VANCOMYCIN HCL INJ 1,000 MG in SODIUM CHLORIDE 0.9% 250ML 250 ML IVPB SCH (17:39)
[2019-05-15] MEDS ORDERED: ENOXAPARIN SODIUM 30 MG/0.3 ML SYG SUBCU ONE (19:15)
[2019-05-15] MEDS: DOCUSATE CALCIUM 240 MG CAP PO SCH (20:20)
[2019-05-15] MEDS: ENOXAPARIN SODIUM 30 MG/0.3 ML SYG SUBCU SCH (22:54)
[2019-05-16] MEDS: VANCOMYCIN HCL INJ 1,000 MG in SODIUM CHLORIDE 0.9% 250ML 250 ML IVPB SCH (06:26)
[2019-05-16] MEDS ORDERED: ceFAZolin SODIUM 2 GRAMS PREMI 50 ML IVPB ONE (07:36)
[2019-05-16] MEDS: HYDROcodone 10MG/APAP 325MG 1 EA TAB PO PRN ×3 (08:26→20:47)
[2019-05-16] MEDS: MAGNESIUM OXIDE 400 MG TAB PO SCH (08:27)
[2019-05-16] MEDS: HCTZ 25 MG/TRIAMTERENE 37.5 MG 1 EA CAP PO SCH (08:27)
[2019-05-16] MEDS: MULTIPLE VITAMINS W/ MINERALS 1 EA TAB PO SCH (08:27)
[2019-05-16] MEDS: CELECOXIB 100 MG CAP PO SCH ×2 (08:27→16:45)
[2019-05-16] MEDS: METHYLCELLULOSE PO SCH (08:28)
[2019-05-16] MEDS: ASPIRIN (ENTERIC COATED) 81 MG TAB PO SCH (08:28)
[2019-05-16] MEDS: LISINOPRIL 10 MG TAB PO SCH (08:28)
[2019-05-16] MEDS: ceFAZolin SODIUM 2 GRAMS PREMI 2 GM in PREMIX BAG 1 BAG IVPB SCH (09:00)
--- NOTE | 2019-05-16 10:27 | PN ---
DATE: 05/15/19 POSTOPERATIVE CHECK SUBJECTIVE: Mr. Kumar is doing well and has no pain. OBJECTIVE: Afebrile. Vital signs stable. Dressing is clean, dry and intact. ASSESSMENT: Status post total knee arthroplasty. PLAN: The plan at this point is to begin weightbearing as tolerated on postoperative day 1. #[id number] [facility]
--- NOTE | 2019-05-16 10:28 | PN ---
DATE: 05/16/19 SUBJECTIVE: Mr. Kumar is doing well. He is up to a chair with his knee currently bent at 90 degrees and comfortable. OBJECTIVE: Afebrile. Vital signs stable. Dressing is clean, dry and intact. ASSESSMENT: Status post total knee arthroplasty. PLAN: The plan at this point is to continue today with weightbearing as tolerated and increase his range of motion. [facility][id number] [facility]
--- NOTE | 2019-05-16 10:39 | OP ---
DATE OF PROCEDURE: 05/15/19 PREOPERATIVE DIAGNOSIS: 1. Right knee osteoarthritis. POSTOPERATIVE DIAGNOSIS: 1. Right knee osteoarthritis. PROCEDURE: 1. Total knee arthroplasty. SURGEON: Eitan Villa MD. FULFILLMENT ASSOCIATE: Arya Morales CST, SA-C. ANESTHESIA: General anesthesia. COMPLICATIONS: None. FINDINGS: Severe osteoarthritis with varus deformity. INDICATION: Mr. Kumar has a very long history of severe knee pain secondary to osteoarthritis. He has failed conservative measures and has continued to have disability from his condition. Because of that, he has requested operative intervention. After discussing the risks, benefits and alternatives to that, the patient has given informed consent for total knee arthroplasty. PROCEDURE: The patient was brought to the Operating Room and placed in supine position. General anesthesia was induced and the patient's leg was sterilely prepped and draped. Following prepping and draping, the distal femur was exposed and using an intramedullary guide, the distal femoral cut was made. The appropriate sized cutting block was measured, pinned into place, and the anterior, posterior, and chamfer cuts were made. The ACL was transected and the tibia was subluxed. Both the medial and lateral menisci were removed. An intramedullary guide was used to make the proximal tibial cut. The appropriate sized base plate was placed and a trial polyethylene was placed. The trial femur was placed, the knee was reduced, and the knee was taken through a range of motion. The knee was stable in anterior, posterior, varus and valgus stress. The patella tracked anatomically without evidence of subluxation or dislocation. After trialing, the trial components were removed and the bony surfaces were thoroughly irrigated with saline. Following irrigation, the surfaces were dried and the final components were cemented into place. The excess cement was removed and the remaining cement was allowed to cure. The knee was again taken through a range of motion to confirm stability. The wound was then irrigated with saline and closure was performed using PDS to approximate the arthrotomy followed by closure of the subcutaneous tissues with a combination of running and interrupted Monocryl sutures. Sterile dressing was placed. The patient was awoken from anesthesia and taken to Recovery. POSTOPERATIVE PLAN: The patient will be weight-bearing as tolerated on postoperative day 1. COMPONENTS: [employer] Triathlon knee, size 6 femur, size 7 tibia, 9 mm insert. [id number] [facility]
[2019-05-16] MEDS: ENOXAPARIN SODIUM 30 MG/0.3 ML SYG SUBCU SCH ×2 (11:14→23:35)
[2019-05-16] MEDS ORDERED: TAMSULOSIN 0.4 MG CAP PO ONE (17:05)
--- NOTE | 2019-05-16 19:46 | PN ---
DATE: 05/16/19 SUPERVISING PHYSICIAN: Baltazar Ennis M.D. SUBJECTIVE: The patient has a little bit of knee discomfort but it is really tolerable at this time. He has been pushing his pain pump accordingly. No other symptoms at this time. OBJECTIVE: VITAL SIGNS: Blood pressure 149/83, heart rate 75, respiratory rate 20, temperature 98.0, oxygen saturation 95%. GENERAL: Ms. Kumar is a 63 year-old male patient in no active distress. NEUROLOGIC: The patient is alert and oriented. LUNGS: Clear to auscultation bilaterally. CARDIOVASCULAR: Regular rate and rhythm. Normal S1 and S2. ABDOMEN: Soft. Positive bowel sounds. EXTREMITIES: Right knee is in an Zack type wrap with good peripheral pulses. Capillary refill less than 2 seconds. ASSESSMENT: 1. Right knee osteoarthritis status post right total knee arthroplasty. Postoperative day #1. 2. Hypertension. 3. History of hepatitis C with previous curative treatment. 4. History of diverticulosis. 5. History of renal insufficiency in the past. PLAN: Continue with physical therapy and pain control. Continue anticoagulation as ordered. Will continue to monitor his need for physical therapy as his admission continues and begin discharge planning as well. #[id number] [facility]
[2019-05-16] MEDS: DEX 5% W/NACL 0.45% 1000ML 1,000 ML IVS PRN (20:46)
[2019-05-16] MEDS: DOCUSATE CALCIUM 240 MG CAP PO SCH (20:47)
[2019-05-17] MEDS: HYDROcodone 10MG/APAP 325MG 1 EA TAB PO PRN ×3 (01:22→13:49)
[2019-05-17] MEDS: CELECOXIB 100 MG CAP PO SCH (08:00)
[2019-05-17] MEDS ORDERED: SODIUM CHLORIDE 0.9% (FLUSH) 10 ML SYG IV SCH (09:00)
[2019-05-17] MEDS: MULTIPLE VITAMINS W/ MINERALS 1 EA TAB PO SCH (09:26)
[2019-05-17] MEDS: ASPIRIN (ENTERIC COATED) 81 MG TAB PO SCH (09:26)
[2019-05-17] MEDS: LISINOPRIL 10 MG TAB PO SCH (09:26)
[2019-05-17] MEDS: HCTZ 25 MG/TRIAMTERENE 37.5 MG 1 EA CAP PO SCH (09:26)
[2019-05-17] MEDS: MAGNESIUM OXIDE 400 MG TAB PO SCH (09:26)
[2019-05-17] MEDS: METHYLCELLULOSE PO SCH (09:27)
[2019-05-17 11:48] VITALS: BP 116/68; TEMP 98.5; O2SAT 95
[2019-05-17] MEDS: ENOXAPARIN SODIUM 30 MG/0.3 ML SYG SUBCU SCH (11:50)
--- NOTE | 2019-05-18 14:24 | DS ---
SUPERVISING PHYSICIAN: Baltazar Ennis MD DISCHARGE DIAGNOSIS: 1. Right knee osteoarthritis status post right total knee arthroplasty performed by Dr. Eitan Villa, orthopedic surgeon, postoperative day #2. 2. Hypertension. 3. History of hepatitis C with previous curative treatment. 4. History of diverticulosis. 5. History of renal insufficiency in the past. HISTORY OF PRESENT ILLNESS: This is a 63-year-old male patient who has a longstanding history of right knee osteoarthritis. He has failed conservative measures and has requested Dr. Eitan Villa, orthopedic surgeon, for elective right total knee arthroplasty. He was admitted on the day of surgery. He had no intraoperative complications. He did receive a spinal block which assisted with pain management. He was admitted to the Floor postoperatively. HOSPITAL COURSE: The patient had no postoperative complications. His home medications were restarted. He completed his physical therapy for strengthening and conditioning. At this point, he is ready to be discharged home in stable condition. LABORATORY: Postoperative hemoglobin 12.7, hematocrit 38.7. UDS was negative. RADIOLOGY: Reports are per the EMR. DISCHARGE PLAN: The patient will be discharged home in stable condition. He is to resume his previous diet and increase his activity as per physical therapy. His insurance has approved [facility] in [place]. He has an appointment with them to start his physical therapy. In addition to his routine medications, he has also been given some hydrocodone for pain, some cyclobenzaprine and 10 days of Xarelto. He has an appointment with Dr. Eitan Villa in 2 weeks. He is to return to the hospital for any problems or complications. DISCHARGE MEDICATIONS: 1. Multivitamin. 2. Methylcellulose laxative. 3. Aspirin. 4. Triamterene/hydrochlorothiazide. 5. Lisinopril. 6. Cyclobenzaprine. 7. Hydrocodone. 8. Xarelto. #[id number] [facility]
[2019-05-18] MEDS ORDERED: BISACODYL SUPPOSITORY 10 MG PR ONE (21:00)
[2019-05-18] MEDS ORDERED: MAGNESIUM HYDROXIDE 30 ML UD PO ONE (21:00)
== END 2019-05-17 14:07 | disposition home or self-care (01) | DRG 470 ==
LOC: AMB 05:21 → MS 10:34
PROVIDERS: ADMIT Nurse Practitioner Family; ATTEND Nurse Practitioner Acute Care
PROC: 3E0T3BZ Introduction of Anesthetic Agent into Peripheral Nerves and Plexi, Percutaneous Approach (ICD-10-PCS; 2019-05-15)
PROC: 3E0T33Z Introduction of Anti-inflammatory into Peripheral Nerves and Plexi, Percutaneous Approach (ICD-10-PCS; 2019-05-15)
PROC: 0SRC0J9 Replacement of Right Knee Joint with Synthetic Substitute, Cemented, Open Approach (ICD-10-PCS; principal; 2019-05-15 06:48)
DX: M17.11 Unilateral primary osteoarthritis, right knee (principal); I10 Essential (primary) hypertension; Z96.652 Presence of left artificial knee joint; Z79.82 Long term (current) use of aspirin; Z79.899 Other long term (current) drug therapy; Z87.891 Personal history of nicotine dependence; Z86.19 Personal history of other infectious and parasitic diseases

== ENCOUNTER → 2020-05-06 | Outpatient (CLI) | payer OTHER ==
--- NOTE | 2020-05-07 08:53 | CT ---
Procedure: CT LUNG SCREENING Exam Date: May 06, 2020. Ordering Provider: Rai Finch Clinical Indication: PERSONAL HISTORY OF TOBACCO DEPENDENCE smoking cessation x12 years. 33 pack years history. This patient meets eligibility criteria for low-dose CT lung cancer screening. Comparison: Low-dose CT lung screening April 2019. Technique: Using a multislice scanner, sequential helical axial imaging was obtained in the thorax, 2.5 mm thickness, 2.5 mm separation, from the level of the thoracic inlet through the lung bases without IV contrast. A low dose protocol was utilized for BMI greater than 30: BMI: 43. CTDI: 2.92 mGy. 120. kVp. 75 mA. DLP 110 mGy-cm. 2D sagittal and coronal reconstructed images, 6.0 mm thickness, were obtained. This exam was performed according to our departmental dose optimization program which includes use of automated exposure control, adjustment of the mA and/or kV according to patient size and/or use of iterative reconstruction technique. Nodule measurements under 10 mm are given as mean value of 3 axes diameters. FINDINGS: Lungs and large airways: Minimal blebs in the lung parenchyma bilaterally predominantly upper lobes. Bilateral apical pleural scarring. Mostly subpleural in the bilateral lower lobes with minimal atelectasis. Subpleural calcified nodule left lingula and right lower lobe. No abnormal nodule and no focal mass. No new or focal infiltrates. No interval change. Pleura and space: Scattered focal areas broad thickening with no acute process. No calcifications. Stable. Mediastinum and shelby: evaluation limited by low dose technique and lack of IV contrast. Opacification with normal size lymph nodes. No dominant soft tissue mass. No interval change.. Heart and great vessels: Coronary artery calcifications. Minimal pericardial thickening. Atherosclerotic calcifications in the aorta stable. Chest wall, lower neck, axillae: Evaluation limited by patient's large body habitus; also limited by same factors as described above. Unremarkable. Upper abdomen: Evaluation limited by low-dose technique and patient large body habitus. No free air or free fluid in the included peritoneal space. Osseous structures: Evaluation limited by low dose MIP technique. Midthoracic spondylosis. Clavicles are normal and manubrial arthrosis with no interval change. IMPRESSION: Minimal emphysematous changes, chronic scarring and atelectasis. No abnormal nodule and no mass. No focal infiltrate.. [facility] Best Practice Recommendations: please see below for Lung RADS category and FOLLOW-UP.* *Lung RADS category Category 1 - No nodule or definitely benign nodules (probability of malignancy less than 1%). Follow-up: Category 1 - No nodule or definitely benign nodules (probability of malignancy less than 1%). Follow-up: Continue annual screening with Low Dose Chest CT in 12 months. Electronically signed by: Arya Ahmadi MD 05/07/2020 8:51 AM CDT
== END ==
LOC: CT 10:00
PROVIDERS: ATTEND Family Medicine
DX: Z12.2 Encounter for screening for malignant neoplasm of respiratory organs (principal); J43.9 Emphysema, unspecified; J98.4 Other disorders of lung; J98.11 Atelectasis; Z87.891 Personal history of nicotine dependence